=== PATIENT | male | born 1945 | race Caucasian/White ===

== ENCOUNTER 2018-02-24 08:17 | Inpatient (IN) | payer MEDICARE, OTHER ==
[~2018-02-24] VITALS: Ht 177.8 cm; Wt 99.4 kg
[2018-02-24] VITALS (8 sets, daily range): BP systolic 103–155; BP diastolic 54–91
[2018-02-24 09:04] LABS: BASOPHILS # (AUTO) 0.3 X10'3 (0-0.2); BASOPHILS % (AUTO) 1.6 % (0-1); EOSINOPHILS # (AUTO) 0.2 X10'3 (0-0.9); EOSINOPHILS % (AUTO) 0.9 % (0-6); HEMATOCRIT 40.1 % (42.0-52.0); HEMOGLOBIN 13.6 g/dl (14.0-17.9); LYMPHOCYTES # (AUTO) 1.2 X10'3 (1.1-4.8); LYMPHOCYTES % (AUTO) 5.7 % (21-51); MEAN CORPUSCULAR HEMOGLOBIN 29.1 PG (27.0-31.0); MEAN CORPUSCULAR VOLUME 85.7 FL (78-98); MEAN PLATELET VOLUME 7.8 FL (7.4-10.4); MONOCYTES # (AUTO) 1.7 X10'3 (0-0.9); MONOCYTES % (AUTO) 7.8 % (2-12); NEUTROPHILS # (AUTO) 17.8 X10'3 (1.8-7.7); PLATELET COUNT 290 X10'3 (140-440); RED BLOOD COUNT 4.68 X10'6 (4.70-6.10); RED CELL DISTRIBUTION WIDTH 12.9 % (11.5-14.5); WHITE BLOOD COUNT 21.2 X10'3 (4.5-11.0)
[2018-02-24 09:21] LABS: ALANINE AMINOTRANSFERASE 40 U/L (12-78); ALBUMIN 3.7 G/DL (3.4-5.0); ALBUMIN/GLOBULIN RATIO 1.1 (1.1-1.5); ALKALINE PHOSPHATASE 80 IU/L (46-116); ANION GAP 9 (8-16); ASPARTATE AMINO TRANSFERASE 27 U/L (10-37); BILIRUBIN,TOTAL 0.5 MG/DL (0.1-1.0); BLOOD UREA NITROGEN 18 MG/DL (7-18); BUN/CREATININE RATIO 12.9 (5.4-32.0); CALCIUM 9.2 MG/DL (8.5-10.1); CHLORIDE 100 MMOL/L (99-107); GLUCOSE 119 MG/DL (70-104); POTASSIUM 4.5 MMOL/L (3.5-5.1); SODIUM 135 MMOL/L (135-145); TOTAL CARBON DIOXIDE 26.4 MMOL/L (24-32); TOTAL PROTEIN 7.2 G/DL (6.4-8.2); eGFR 50 ML/MIN
[2018-02-24 09:42] LABS: PARTIAL THROMBOPLASTIN TIME 25 SECONDS (22-32)
[2018-02-24] MEDS ORDERED: ondansetron/PF 4mg/2ml inj IV PRN ×2 (10:10→12:45)
[2018-02-24] MEDS ORDERED: MORPHINE 2MG in 2ml NS syringe IV PRN (10:10)
[2018-02-24] MEDS ORDERED: normal saline 1000ML IV soln IVB ONE (10:10)
[2018-02-24] MEDS ORDERED: morphine 4 MG/ML inj SYRINge IV PRN ×2 (10:18→12:45)
[2018-02-24 11:54] LABS: OCCULT BLOOD STOOL POSITIVE (Neg)
[2018-02-24 11:55] LABS: CLARITY,URINE CLEAR (Clear); COLOR,URINE YELLOW (Yellow); GLUCOSE, URINE NEGATIVE (Neg); KETONES,URINE NEGATIVE (Neg); LEUKOCYTE ESTERASE ,URINE NEGATIVE (Neg); NITRITES, URINE NEGATIVE (Neg); OCCULT BLOOD,URINE NEGATIVE (Neg); PH,URINE 5.5 (4.8-8.0); PROTEIN,URINE NEGATIVE (Neg); UROBILINOGEN,URINE 0.2 E.U/dL (0.2-1.0)
[2018-02-24 11:57] LABS: UA COLLECTION TYPE CLN CATCH MIDSTREAM
[2018-02-24] MEDS ORDERED: LISI10TA4 PO (12:44)
[2018-02-24] MEDS ORDERED: SIMV20TA5 PO (12:44)
[2018-02-24] MEDS ORDERED: OMEP40CA37 PO (12:44)
[2018-02-24] MEDS ORDERED: LORA10TA7 PO (12:44)
[2018-02-24] MEDS ORDERED: AMIT50TA3 PO (12:44)
[2018-02-24] MEDS ORDERED: DICL-194 PO (12:44)
[2018-02-24] MEDS ORDERED: MULT-1085 PO (12:44)
[2018-02-24] MEDS ORDERED: MOME0.242 INH (12:44)
[2018-02-24] MEDS ORDERED: magnesium hydroxide 30ml (MOM) UD suspension PO PRN (12:45)
[2018-02-24] MEDS ORDERED: HYDROcodone/acetaminophen 10/325mg tab PO PRN (12:45)
[2018-02-24] MEDS ORDERED: HYDROcodone/acetaminophen 5mg/325mg tablet PO PRN (12:45)
[2018-02-24] MEDS ORDERED: acetaminophen 325mg tablet PO PRN ×2 (12:45)
[2018-02-24] MEDS ORDERED: mag hydrox/Alum hydrox/simeth 30ml oral suspension PO PRN (12:45)
[2018-02-24] MEDS: normal saline 1000ml 1,000 ML IV SCH ×2 (13:25→20:30)
[2018-02-24] MEDS: levoFLOXACIN-Levaquin 500mg/D5 100 ML IV SCH (13:26)
[2018-02-24] MEDS: metroNIDAZOLE-Flagyl 500mg/NS 100 ML IV SCH ×3 (14:47→23:48)
[2018-02-24] MEDS ORDERED: fentaNYL/PF 50MCG/1 ML 2ML syringe ONE (16:25)
[2018-02-24] MEDS ORDERED: MIDAZolam 5mg/5ml vial ONE (16:25)
[2018-02-24] MEDS ORDERED: normal saline 1000ml 1,000 ML IV SCH (16:59)
[2018-02-24] MEDS ORDERED: simethicone 40mg/0.6ml oral drops 30ml MC ONE (17:00)
[2018-02-24] MEDS: lisinopril 10 MG tablet PO SCH (20:26)
[2018-02-24] MEDS: amitryptiline 50mg tablet PO SCH (20:26)
[2018-02-24] MEDS: atorvastatin 10mg tablet PO SCH (20:26)
[2018-02-24] MEDS ORDERED: temazepam 15mg capsule PO PRN (21:00)
[2018-02-25 03:00] VITALS: BP 129/68
[2018-02-25 06:00] VITALS: BP 141/67
[2018-02-25 06:01] LABS: BASOPHILS % (AUTO) 0.1 % (0-1); EOSINOPHILS # (AUTO) 0.5 X10'3 (0-0.9); EOSINOPHILS % (AUTO) 3.5 % (0-6); HEMATOCRIT 34.8 % (42.0-52.0); HEMOGLOBIN 11.7 g/dl (14.0-17.9); LYMPHOCYTES # (AUTO) 1.8 X10'3 (1.1-4.8); MEAN CORPUSCULAR HEMOGLOBIN 29.6 PG (27.0-31.0); MEAN CORPUSCULAR HGB CONC 33.6 % (33.0-36.5); MEAN CORPUSCULAR VOLUME 88.1 FL (78-98); MEAN PLATELET VOLUME 7.7 FL (7.4-10.4); MONOCYTES # (AUTO) 1.1 X10'3 (0-0.9); MONOCYTES % (AUTO) 8.3 % (2-12); NEUTROPHILS # (AUTO) 10.1 X10'3 (1.8-7.7); NEUTROPHILS % (AUTO) 75.1 % (42-75); PLATELET COUNT 231 X10'3 (140-440); RED BLOOD COUNT 3.95 X10'6 (4.70-6.10); RED CELL DISTRIBUTION WIDTH 14.3 % (11.5-14.5); WHITE BLOOD COUNT 13.5 X10'3 (4.5-11.0)
[2018-02-25 06:19] LABS: ANION GAP 8 (8-16); BLOOD UREA NITROGEN 11 MG/DL (7-18); BUN/CREATININE RATIO 9.7 (5.4-32.0); CALCIUM 8.7 MG/DL (8.5-10.1); CHLORIDE 106 MMOL/L (99-107); CREATININE 1.13 MG/DL (0.60-1.10); GLUCOSE 99 MG/DL (70-104); POTASSIUM 4.6 MMOL/L (3.5-5.1); SODIUM 141 MMOL/L (135-145); TOTAL CARBON DIOXIDE 27.3 MMOL/L (24-32); eGFR 64 ML/MIN
[2018-02-25] MEDS: lisinopril 10 MG tablet PO SCH ×2 (07:41→21:24)
[2018-02-25] MEDS: multivitamins, therapeutics tablet PO SCH (07:41)
[2018-02-25] MEDS: metroNIDAZOLE-Flagyl 500mg/NS 100 ML IV SCH ×2 (07:41→16:03)
[2018-02-25] MEDS: pantoprazole 40mg Tablet.DR PO SCH (07:41)
[2018-02-25] MEDS: levoFLOXACIN-Levaquin 500mg/D5 100 ML IV SCH (07:41)
[2018-02-25] MEDS: loratadine 10mg tablet PO SCH (07:41)
[2018-02-25] MEDS ORDERED: fluticasone furoate 200 MCG/puff inhaler IH SCH (08:00)
[2018-02-25] MEDS: normal saline 1000ml 1,000 ML IV SCH (09:10)
[2018-02-25 11:00] VITALS: BP 130/62
[2018-02-25 15:00] VITALS: BP 99/53
[2018-02-25 19:00] VITALS: BP 124/61
[2018-02-25] MEDS: atorvastatin 10mg tablet PO SCH (21:24)
[2018-02-25] MEDS: amitryptiline 50mg tablet PO SCH (21:24)
[2018-02-25 23:00] VITALS: BP 130/61
[2018-02-26] MEDS: metroNIDAZOLE-Flagyl 500mg/NS 100 ML IV SCH (00:08)
[2018-02-26] MEDS: normal saline 1000ml 1,000 ML IV SCH ×2 (00:13→04:45)
[2018-02-26 03:00] VITALS: BP 125/70
[2018-02-26 06:00] VITALS: BP 137/72
[2018-02-26 06:10] LABS: BASOPHILS # (AUTO) 0.1 X10'3 (0-0.2); BASOPHILS % (AUTO) 0.8 % (0-1); EOSINOPHILS # (AUTO) 0.6 X10'3 (0-0.9); EOSINOPHILS % (AUTO) 5.4 % (0-6); HEMATOCRIT 31.8 % (42.0-52.0); LYMPHOCYTES # (AUTO) 2.4 X10'3 (1.1-4.8); LYMPHOCYTES % (AUTO) 23.4 % (21-51); MEAN CORPUSCULAR HEMOGLOBIN 30.3 PG (27.0-31.0); MEAN CORPUSCULAR HGB CONC 34.7 % (33.0-36.5); MEAN CORPUSCULAR VOLUME 87.5 FL (78-98); MONOCYTES # (AUTO) 0.9 X10'3 (0-0.9); MONOCYTES % (AUTO) 8.7 % (2-12); NEUTROPHILS # (AUTO) 6.3 X10'3 (1.8-7.7); NEUTROPHILS % (AUTO) 61.7 % (42-75); PLATELET COUNT 197 X10'3 (140-440); RED BLOOD COUNT 3.64 X10'6 (4.70-6.10); RED CELL DISTRIBUTION WIDTH 13.1 % (11.5-14.5); WHITE BLOOD COUNT 10.3 X10'3 (4.5-11.0)
[2018-02-26 06:17] LABS: ANION GAP 10 (8-16); BLOOD UREA NITROGEN 13 MG/DL (7-18); CALCIUM 8.6 MG/DL (8.5-10.1); CHLORIDE 107 MMOL/L (99-107); CREATININE 1.08 MG/DL (0.60-1.10); GLUCOSE 98 MG/DL (70-104); POTASSIUM 4.2 MMOL/L (3.5-5.1); SODIUM 140 MMOL/L (135-145); TOTAL CARBON DIOXIDE 23.2 MMOL/L (24-32); eGFR 67 ML/MIN
[2018-02-26 06:18] LABS: ALBUMIN 2.8 G/DL (3.4-5.0)
[2018-02-26] MEDS: loratadine 10mg tablet PO SCH (08:05)
[2018-02-26] MEDS: lisinopril 10 MG tablet PO SCH (08:05)
[2018-02-26] MEDS: pantoprazole 40mg Tablet.DR PO SCH (08:05)
[2018-02-26] MEDS: levoFLOXACIN-Levaquin 500mg/D5 100 ML IV SCH (08:06)
[2018-02-26] MEDS: multivitamins, therapeutics tablet PO SCH (08:06)
[2018-02-26] MEDS ORDERED: METR500T PO (10:06)
[2018-02-26] MEDS ORDERED: LEVO500T89 PO (10:06)
[2018-02-26 11:00] VITALS: BP 139/75
== END 2018-02-26 12:20 | disposition home or self-care (01) | DRG 377 ==
LOC: ER 08:18 → ED HOLD 12:45 → PCU 3S 15:44 → CMPBEDREQ 19:26
PROVIDERS: ADMIT Hospitalist; ATTEND Family Medicine
PROC: 0DBL8ZX Excision of Transverse Colon, Via Natural or Artificial Opening Endoscopic, Diagnostic (ICD-10-PCS; principal; 2018-02-24)
DX: K92.2 Gastrointestinal hemorrhage, unspecified (principal); K55.031 Focal (segmental) acute (reversible) ischemia of large intestine; K63.3 Ulcer of intestine; D62 Acute posthemorrhagic anemia; E86.0 Dehydration; M19.90 Unspecified osteoarthritis, unspecified site; Z79.899 Other long term (current) drug therapy
CPT/HCPCS: 36415; 45380; 71045; 74176; 80048; 80053; 81003; 82272; 83605; 84145; 84484; 85025; 85610; 85730; 86885; 86900; 86901; 87040; 99285; A4620; J1956; J2250; J3010; J3490; J7030

== ENCOUNTER 2022-01-01 14:48 | Emergency (ER) | payer MEDICARE, OTHER ==
[~2022-01-01] VITALS: Ht 177.8 cm; Wt 98.6 kg
[~2022-01-01 14:48] MED LIST: AMIT50TA3 PO; LISI10TA27 PO; LORA10TA7 PO; MOME0.242 INH; MULT-1085 PO; OMEP40CA21 PO; SIMV-42 PO
[2022-01-01] MEDS ORDERED: lactulose 20gm/30ml cup PO ONE (15:20)
[2022-01-01] MEDS ORDERED: magnesium citrate 296ml oral solution PO ONE (15:20)
[2022-01-01 15:51] LABS: BASOPHILS # (AUTO) 0.1 X10'3 (0-0.2); BASOPHILS % (AUTO) 0.3 % (0-1); EOSINOPHILS # (AUTO) 0.1 X10'3 (0-0.9); EOSINOPHILS % (AUTO) 0.7 % (0-6); HEMATOCRIT 36.5 % (42.0-52.0); HEMOGLOBIN 12.2 g/dl (14.0-17.9); LYMPHOCYTES # (AUTO) 1.1 X10'3 (1.1-4.8); MEAN CORPUSCULAR HEMOGLOBIN 29.1 PG (27.0-31.0); MEAN CORPUSCULAR HGB CONC 33.4 g/dL (33.0-36.5); MEAN CORPUSCULAR VOLUME 87.2 FL (78-98); MEAN PLATELET VOLUME 7.5 FL (7.4-10.4); MONOCYTES # (AUTO) 0.9 X10'3 (0-0.9); MONOCYTES % (AUTO) 5.9 % (2-12); NEUTROPHILS # (AUTO) 13.6 X10'3 (1.8-7.7); NEUTROPHILS % (AUTO) 86.1 % (42-75); PLATELET COUNT 256 X10'3 (140-440); RED BLOOD COUNT 4.18 X10'6 (4.70-6.10); RED CELL DISTRIBUTION WIDTH 13.8 % (11.5-14.5); WHITE BLOOD COUNT 15.8 X10'3 (4.5-11.0)
[2022-01-01 16:05] LABS: ALANINE AMINOTRANSFERASE 24 U/L (12-78); ALBUMIN 3.6 G/DL (3.4-5.0); ALBUMIN/GLOBULIN RATIO 1.1 (1.1-1.5); ANION GAP 4 (8-16); ASPARTATE AMINO TRANSFERASE 16 U/L (10-37); BILIRUBIN,TOTAL 0.3 MG/DL (0.1-1.0); BLOOD UREA NITROGEN 16 MG/DL (7-18); BUN/CREATININE RATIO 12.4 (5.4-32.0); CALCIUM 8.8 MG/DL (8.5-10.1); CHLORIDE 100 MMOL/L (99-107); CREATININE 1.29 MG/DL (0.60-1.10); GLUCOSE 122 MG/DL (70-104); POTASSIUM 4.9 MMOL/L (3.5-5.1); SODIUM 132 MMOL/L (135-145); TOTAL CARBON DIOXIDE 28.4 MMOL/L (24-32); TOTAL PROTEIN 6.8 G/DL (6.4-8.2); eGFR 54 ML/MIN
[2022-01-01 16:34] LABS: CLARITY,URINE CLOUDY (Clear); COLOR,URINE YELLOW (Yellow); GLUCOSE, URINE NEGATIVE (Neg); KETONES,URINE 15 mg/dl (Neg); LEUKOCYTE ESTERASE ,URINE MODERATE (Neg); NITRITES, URINE NEGATIVE (Neg); OCCULT BLOOD,URINE LARGE (Neg); PROTEIN,URINE 100 mg/dl (Neg); UROBILINOGEN,URINE 0.2 E.U/dL (0.2-1.0)
[2022-01-01 16:48] LABS: UA COLLECTION TYPE FOLEY CATH
[2022-01-01] MEDS ORDERED: iohexol 300mg/ml 100ml inj. ONE (16:55)
[2022-01-01 17:24] LABS: BACTERIA,URINE 1+ /HPF (Neg); MUCUS STRANDS FEW /LPF (Neg); RBC,URINE TNTC /HPF (0-2); SQUAMOUS EPITHELIAL CELL,UR FEW /LPF (FEW); TRANSITIONAL EPI CELLS,URINE FEW /HPF; WBC,URINE 30-50 /HPF (0-4)
[2022-01-01 17:25] LABS: HYALINE CASTS 0-3 /LPF (NEGATIVE)
[2022-01-01] MEDS ORDERED: sulfamethoxazole/trimethoprim DS (800/160mg) tablet PO ONE (18:15)
[2022-01-01] MEDS ORDERED: SENN1TAB33 PO ×2 (18:57)
[2022-01-01] MEDS ORDERED: SULF1TAB45 PO ×2 (18:57)
[2022-01-01 19:36] VITALS: BP 92/60
== END 2022-01-01 19:40 | disposition home or self-care (01) ==
LOC: ER 14:53
DX: K59.00 Constipation, unspecified (principal); N39.0 Urinary tract infection, site not specified; E78.00 Pure hypercholesterolemia, unspecified; J45.909 Unspecified asthma, uncomplicated; K21.9 Gastro-esophageal reflux disease without esophagitis; G89.29 Other chronic pain; M19.90 Unspecified osteoarthritis, unspecified site; Z79.899 Other long term (current) drug therapy; Z96.0 Presence of urogenital implants
CPT/HCPCS: 36415; 74177; 80053; 81001; 85025; 87088; 99285; Q9967

== ENCOUNTER 2022-01-01 19:50 | Inpatient (IN) | payer MEDICARE, OTHER ==
[~2022-01-01] VITALS: Ht 177.8 cm; Wt 97.7 kg
[~2022-01-01 19:50] MED LIST changes: +SENN1TAB33 PO; +SULF1TAB45 PO
[2022-01-01] MEDS ORDERED: normal saline 1000ml 1,000 ML IV ONE (20:25)
[2022-01-01 21:59] LABS: MAGNESIUM 2.3 MG/DL (1.5-2.4)
[2022-01-02] VITALS (9 sets, daily range): BP systolic 76–141; BP diastolic 32–76
--- NOTE | 2022-01-02 06:32 | NUR ---
Patient in room PCU 3010. I have received report from Meena SAMPSON and had the opportunity to ask questions and assume patient care.
[2022-01-02] MEDS ORDERED: normal saline 1000ml 1,000 ML IV SCH (07:10)
[2022-01-02] MEDS ORDERED: ondansetron/PF 4mg/2ml inj IV PRN (07:10)
[2022-01-02] MEDS ORDERED: magnesium Cl slow-release 64mg tablet PO PRN (07:10)
[2022-01-02] MEDS ORDERED: potassium Cl 20 mEq SR tablet PO PRN ×2 (07:10)
[2022-01-02] MEDS ORDERED: magnesium 2GM in 50ml NS 50 ML IV PRN (07:10)
[2022-01-02] MEDS ORDERED: PERFLUTREN PROTEIN-A MICROSPHR (Optison) 0.22 MG/ML 3ML VIAL IV PRN (07:10)
[2022-01-02] MEDS ORDERED: potassium CL 10mEq/100ml bag 100 ML IV PRN (07:10)
[2022-01-02] MEDS ORDERED: magnesium 4gm in 100ml NS 100 ML IV PRN (07:10)
[2022-01-02] MEDS: K and/or MAG REPLACEMENT MC SCH ×2 (08:00→20:00)
[2022-01-02] MEDS: normal saline 1000ml 1,000 ML IV SCH ×2 (09:09→17:10)
[2022-01-02 10:20] LABS: MAGNESIUM 2.5 MG/DL (1.5-2.4)
[2022-01-02 10:24] LABS: POTASSIUM 4.5 MMOL/L (3.5-5.1)
[2022-01-02] MEDS: CefTRIAXone/D5W-Rocephin 1gm 50 ML IV SCH (11:49)
[2022-01-02] MEDS ORDERED: magnesium hydroxide 30ml (MOM) UD suspension PO ONE (14:40)
--- NOTE | 2022-01-02 16:23 | NUR ---
PAGER ID: [phone] MESSAGE: [id number]. Orthostatics positive lay 108/63, sit 85/42, stand 76/32. Raysa/Lanette Ext [phone]
[2022-01-02] MEDS: acetaminophen 325mg tablet PO PRN (17:59)
--- NOTE | 2022-01-02 18:12 | NUR ---
Problems reprioritized. Patient report given, questions answered & plan of care reviewed with Meena SAMPSON. Patient resting in bed in no acute distress
[2022-01-02] MEDS: lisinopril 10 MG tablet PO SCH (20:00)
[2022-01-02] MEDS: amitriptyline 50mg tablet PO SCH (20:01)
[2022-01-02] MEDS: atorvastatin 10mg tablet PO SCH (20:01)
--- NOTE | 2022-01-02 20:07 | NUR ---
Lisinopril was not administered. Pt diastolic pressure is 52.
[2022-01-03] VITALS (8 sets, daily range): BP systolic 99–143; BP diastolic 47–76
[2022-01-03] MEDS: normal saline 1000ml 1,000 ML IV SCH ×3 (03:37→19:25)
[2022-01-03 07:32] LABS: BASOPHILS % (AUTO) 0.2 % (0-1); EOSINOPHILS # (AUTO) 0.1 X10'3 (0-0.9); EOSINOPHILS % (AUTO) 0.4 % (0-6); HEMATOCRIT 35.4 % (42.0-52.0); HEMOGLOBIN 11.7 g/dl (14.0-17.9); LYMPHOCYTES # (AUTO) 1.2 X10'3 (1.1-4.8); LYMPHOCYTES % (AUTO) 6.2 % (21-51); MEAN CORPUSCULAR HEMOGLOBIN 29.2 PG (27.0-31.0); MEAN CORPUSCULAR HGB CONC 33.2 g/dL (33.0-36.5); MEAN CORPUSCULAR VOLUME 87.8 FL (78-98); MEAN PLATELET VOLUME 7.6 FL (7.4-10.4); MONOCYTES # (AUTO) 1.9 X10'3 (0-0.9); NEUTROPHILS # (AUTO) 15.8 X10'3 (1.8-7.7); NEUTROPHILS % (AUTO) 83.2 % (42-75); PLATELET COUNT 217 X10'3 (140-440); RED BLOOD COUNT 4.03 X10'6 (4.70-6.10); RED CELL DISTRIBUTION WIDTH 14.2 % (11.5-14.5)
[2022-01-03] MEDS: budesonide 0.5mg/2ml UD nebule IH SCH ×2 (07:36→20:59)
[2022-01-03] MEDS: K and/or MAG REPLACEMENT MC SCH ×2 (08:00→19:12)
[2022-01-03] MEDS: lisinopril 10 MG tablet PO SCH ×2 (08:00→19:32)
[2022-01-03 08:04] LABS: ANION GAP 7 (8-16); BLOOD UREA NITROGEN 18 MG/DL (7-18); BUN/CREATININE RATIO 14.2 (5.4-32.0); CALCIUM 8.1 MG/DL (8.5-10.1); CHLORIDE 104 MMOL/L (99-107); CREATININE 1.27 MG/DL (0.60-1.10); GLUCOSE 110 MG/DL (70-104); MAGNESIUM 2.8 MG/DL (1.5-2.4); SODIUM 136 MMOL/L (135-145); TOTAL CARBON DIOXIDE 25.3 MMOL/L (24-32); eGFR 55 ML/MIN
[2022-01-03] MEDS: multivitamins, therapeutics tablet PO SCH (08:41)
[2022-01-03] MEDS: pantoprazole 40mg Tablet.DR PO SCH (08:41)
[2022-01-03] MEDS: CefTRIAXone/D5W-Rocephin 1gm 50 ML IV SCH (08:42)
[2022-01-03] MEDS: loratadine 10mg tablet PO SCH (08:42)
--- NOTE | 2022-01-03 18:25 | NUR ---
Patient in room PCU 3010. I have received report from CAMILLA Rodgers, and had the opportunity to ask questions and assume patient care.
--- NOTE | 2022-01-03 18:42 | NUR ---
Problems reprioritized. Patient report given, questions answered & plan of care reviewed with Sana SAMPSON.
[2022-01-03] MEDS: atorvastatin 10mg tablet PO SCH (20:22)
[2022-01-03] MEDS: acetaminophen 325mg tablet PO PRN (20:22)
[2022-01-03] MEDS: amitriptyline 50mg tablet PO SCH (20:22)
[2022-01-04 02:00] VITALS: BP 122/62
[2022-01-04 06:00] VITALS: BP 121/55
--- NOTE | 2022-01-04 06:13 | NUR ---
Problems reprioritized. Patient report given, questions answered & plan of care reviewed with CAMILLA Barclay.
[2022-01-04] MEDS: CefTRIAXone/D5W-Rocephin 1gm 50 ML IV SCH (07:27)
[2022-01-04] MEDS: loratadine 10mg tablet PO SCH (07:30)
[2022-01-04] MEDS: pantoprazole 40mg Tablet.DR PO SCH (07:30)
[2022-01-04] MEDS: multivitamins, therapeutics tablet PO SCH (07:30)
[2022-01-04] MEDS: lisinopril 10 MG tablet PO SCH (07:30)
[2022-01-04 08:00] VITALS: BP_SYST 119; BP_SYST 133; BP_SYST 149; BP_DIAS 58; BP_DIAS 66; BP_DIAS 67
[2022-01-04] MEDS: budesonide 0.5mg/2ml UD nebule IH SCH (08:25)
[2022-01-04 08:31] LABS: BASOPHILS # (AUTO) 0.1 X10'3 (0-0.2); BASOPHILS % (AUTO) 0.6 % (0-1); EOSINOPHILS # (AUTO) 0.4 X10'3 (0-0.9); EOSINOPHILS % (AUTO) 2.5 % (0-6); HEMATOCRIT 33.4 % (42.0-52.0); HEMOGLOBIN 11.1 g/dl (14.0-17.9); LYMPHOCYTES # (AUTO) 1.3 X10'3 (1.1-4.8); LYMPHOCYTES % (AUTO) 9.2 % (21-51); MEAN CORPUSCULAR HEMOGLOBIN 29.2 PG (27.0-31.0); MEAN CORPUSCULAR HGB CONC 33.2 g/dL (33.0-36.5); MEAN PLATELET VOLUME 7.8 FL (7.4-10.4); MONOCYTES # (AUTO) 1.4 X10'3 (0-0.9); MONOCYTES % (AUTO) 9.9 % (2-12); NEUTROPHILS # (AUTO) 11.3 X10'3 (1.8-7.7); NEUTROPHILS % (AUTO) 77.8 % (42-75); PLATELET COUNT 206 X10'3 (140-440); RED CELL DISTRIBUTION WIDTH 14.5 % (11.5-14.5); WHITE BLOOD COUNT 14.5 X10'3 (4.5-11.0)
[2022-01-04 09:20] LABS: ALBUMIN 2.8 G/DL (3.4-5.0); ANION GAP 7 (8-16); BLOOD UREA NITROGEN 19 MG/DL (7-18); BUN/CREATININE RATIO 16.8 (5.4-32.0); CHLORIDE 107 MMOL/L (99-107); CREATININE 1.13 MG/DL (0.60-1.10); GLUCOSE 100 MG/DL (70-104); MAGNESIUM 2.4 MG/DL (1.5-2.4); POTASSIUM 4.7 MMOL/L (3.5-5.1); SODIUM 138 MMOL/L (135-145); TOTAL CARBON DIOXIDE 23.8 MMOL/L (24-32); eGFR 63 ML/MIN
[2022-01-04] MEDS ORDERED: AMIT50TA3 PO (11:40)
[2022-01-04] MEDS ORDERED: CIPR-202 PO (11:40)
--- NOTE | 2022-01-04 12:58 | NUR ---
Ambulation done. 300 feet with walker. Patient tolerated the walk well. Stood up too fast and felt dizzy.
== END 2022-01-04 16:20 | disposition home health service (06) | DRG 312 ==
LOC: ER 19:50 → ED HOLD 23:52 → PCU 3S 01-02 03:02
PROVIDERS: ADMIT Internal Medicine; ATTEND Family Medicine
DX: I95.1 Orthostatic hypotension (principal); N39.0 Urinary tract infection, site not specified; E86.0 Dehydration; I10 Essential (primary) hypertension; J44.9 Chronic obstructive pulmonary disease, unspecified; K21.9 Gastro-esophageal reflux disease without esophagitis; F41.9 Anxiety disorder, unspecified; E78.5 Hyperlipidemia, unspecified; E03.9 Hypothyroidism, unspecified; K59.00 Constipation, unspecified; E78.00 Pure hypercholesterolemia, unspecified; M19.90 Unspecified osteoarthritis, unspecified site; G89.29 Other chronic pain; Z79.899 Other long term (current) drug therapy
CPT/HCPCS: 36415; 70450; 70486; 71045; 72125; 74177; 80048; 80053; 81001; 82948; 83735; 83880; 84132; 84145; 84484; 85025; 87081; 87088; 93005; 93306; 93880; 94640; 94760; 96360; 96361; 97116; 97161; 97530; 99285; G0378; J0696; J7030; Q9967

== ENCOUNTER 2023-05-21 23:06 | Emergency (ER) | payer MEDICARE, OTHER, MEDICAID ==
[~2023-05-21] VITALS: Ht 182.9 cm; Wt 113.6 kg
[~2023-05-21 23:06] MED LIST changes: +ALBU8HFA PO; -AMIT50TA3 PO; +AMIT75TA7 PO; +CHOL100025 PO; +FLO0.4C PO; +LACT1CAP65 PO; +LEVO25TA7 PO; -LISI10TA27 PO; +LISI5TAB22 PO; -LORA10TA7 PO; -MOME0.242 INH; +MOME13HF8 PO; +MULT-1074 PO; -MULT-1085 PO; +OMEP20CA15 PO; -OMEP40CA21 PO; -SENN1TAB33 PO; +SIMV-342 PO; -SIMV-42 PO; -SULF1TAB45 PO
[2023-05-21 23:44] LABS: BASOPHILS # (AUTO) 0.1 X10'3 (0-0.2); BASOPHILS % (AUTO) 0.5 % (0-1); EOSINOPHILS # (AUTO) 0.7 X10'3 (0-0.9); EOSINOPHILS % (AUTO) 4.4 % (0-6); HEMATOCRIT 35.1 % (42.0-52.0); HEMOGLOBIN 11.6 g/dl (14.0-17.9); LYMPHOCYTES # (AUTO) 1.4 X10'3 (1.1-4.8); LYMPHOCYTES % (AUTO) 8.8 % (21-51); MEAN CORPUSCULAR HEMOGLOBIN 28.5 PG (27.0-31.0); MEAN CORPUSCULAR HGB CONC 33.1 g/dL (33.0-36.5); MEAN CORPUSCULAR VOLUME 86.1 FL (78-98); MEAN PLATELET VOLUME 6.7 FL (7.4-10.4); MONOCYTES # (AUTO) 1.7 X10'3 (0-0.9); MONOCYTES % (AUTO) 10.6 % (2-12); NEUTROPHILS # (AUTO) 12.2 X10'3 (1.8-7.7); NEUTROPHILS % (AUTO) 75.7 % (42-75); PLATELET COUNT 461 X10'3 (140-440); RED BLOOD COUNT 4.07 X10'6 (4.70-6.10); RED CELL DISTRIBUTION WIDTH 14.5 % (11.5-14.5); WHITE BLOOD COUNT 16.1 X10'3 (4.5-11.0)
[2023-05-21 23:56] LABS: ALANINE AMINOTRANSFERASE 39 U/L (12-78); ALBUMIN 3.2 G/DL (3.4-5.0); ALKALINE PHOSPHATASE 91 IU/L (46-116); ANION GAP 10 (8-16); ASPARTATE AMINO TRANSFERASE 14 U/L (10-37); BILIRUBIN,TOTAL 0.4 MG/DL (0.1-1.0); BLOOD UREA NITROGEN 25 MG/DL (7-18); CALCIUM 8.9 MG/DL (8.5-10.1); CHLORIDE 94 MMOL/L (99-107); CREATININE 1.25 MG/DL (0.60-1.10); GLUCOSE 106 MG/DL (70-104); SODIUM 129 MMOL/L (135-145); TOTAL CARBON DIOXIDE 24.7 MMOL/L (24-32); TOTAL PROTEIN 6.4 G/DL (6.4-8.2); eGFR 56 ML/MIN
[2023-05-21 23:59] LABS: CLARITY,URINE SLIGHTLY CLOUDY (Clear); COLOR,URINE YELLOW (Yellow); GLUCOSE, URINE NEGATIVE (Neg); KETONES,URINE NEGATIVE (Neg); LEUKOCYTE ESTERASE ,URINE NEGATIVE (Neg); NITRITES, URINE NEGATIVE (Neg); OCCULT BLOOD,URINE TRACE-INTACT (Neg); PROTEIN,URINE NEGATIVE (Neg); UROBILINOGEN,URINE 0.2 E.U/dL (0.2-1.0)
[2023-05-22 00:04] LABS: UA COLLECTION TYPE NON-SPECIFIED
[2023-05-22 00:07] LABS: BACTERIA,URINE FEW /HPF (Neg); SQUAMOUS EPITHELIAL CELL,UR FEW /LPF (FEW); TRANSITIONAL EPI CELLS,URINE FEW /HPF; WBC CLUMPS,URINE FEW /HPF (NEGATIVE)
[2023-05-22] MEDS ORDERED: CefTRIAXone 2gm/D5W 50ml BAG 50 ML IV ONE (00:10)
[2023-05-22] MEDS ORDERED: normal saline 1000ML IV soln IVB ONE (00:10)
[2023-05-22 00:18] LABS: URINE AMPHETAMINE SCREEN NEGATIVE (Neg); URINE BARBITUATE SCREEN NEGATIVE (Neg); URINE BENZODIAZEPINES SCREEN NEGATIVE (Neg); URINE CANNABINOID SCREEN NEGATIVE (Neg); URINE COCAINE SCREEN NEGATIVE (Neg); URINE METHADONE SCREEN NEGATIVE (Neg); URINE OPIATE SCREEN NEGATIVE (Neg); URINE PHENCYCLIDINE SCREEN NEGATIVE (Neg)
[2023-05-22] MEDS ORDERED: AMOX-117 PO (00:30)
--- NOTE | 2023-05-22 01:10 | NUR ---
report given to noc nurse at [facility], awaiting to hear back from [facility] with regards to transportation.
[2023-05-22 01:42] VITALS: BP 157/65
== END 2023-05-22 01:43 ==
LOC: ER 23:07
DX: N39.0 Urinary tract infection, site not specified (principal); E86.0 Dehydration; E78.00 Pure hypercholesterolemia, unspecified; K21.9 Gastro-esophageal reflux disease without esophagitis; G89.29 Other chronic pain; M54.9 Dorsalgia, unspecified; F41.9 Anxiety disorder, unspecified; Z79.899 Other long term (current) drug therapy
CPT/HCPCS: 36415; 71045; 80053; 80305; 81001; 82140; 83605; 83880; 84145; 84484; 85025; 87040; 93005; 96365; 99285; J0696; J7030; 81003; C1758

== ENCOUNTER 2023-06-18 07:01 | Emergency (ER) | payer MEDICARE, OTHER, MEDICAID ==
[~2023-06-18] VITALS: Ht 182.9 cm; Wt 81.8 kg
[2023-06-18] MEDS ORDERED: normal saline 1000ML IV soln IV ONE (07:20)
[2023-06-18 07:38] LABS: BASOPHILS % (AUTO) 0.3 % (0-1); EOSINOPHILS # (AUTO) 0.3 X10'3 (0-0.9); EOSINOPHILS % (AUTO) 1.8 % (0-6); HEMATOCRIT 36.6 % (42.0-52.0); HEMOGLOBIN 12.1 g/dl (14.0-17.9); LYMPHOCYTES % (AUTO) 14.4 % (21-51); MEAN CORPUSCULAR HEMOGLOBIN 28.5 PG (27.0-31.0); MEAN CORPUSCULAR HGB CONC 33.2 g/dL (33.0-36.5); MEAN CORPUSCULAR VOLUME 85.9 FL (78-98); MEAN PLATELET VOLUME 6.8 FL (7.4-10.4); MONOCYTES # (AUTO) 1.5 X10'3 (0-0.9); MONOCYTES % (AUTO) 10.4 % (2-12); NEUTROPHILS # (AUTO) 10.3 X10'3 (1.8-7.7); NEUTROPHILS % (AUTO) 73.1 % (42-75); PLATELET COUNT 358 X10'3 (140-440); RED BLOOD COUNT 4.26 X10'6 (4.70-6.10); RED CELL DISTRIBUTION WIDTH 15.3 % (11.5-14.5); WHITE BLOOD COUNT 14.1 X10'3 (4.5-11.0)
[2023-06-18 07:48] LABS: ALANINE AMINOTRANSFERASE 32 U/L (12-78); ALBUMIN 3.6 G/DL (3.4-5.0); ALBUMIN/GLOBULIN RATIO 0.9 (1.1-1.5); ALKALINE PHOSPHATASE 142 IU/L (46-116); ANION GAP 8 (8-16); ASPARTATE AMINO TRANSFERASE 23 U/L (10-37); BILIRUBIN,TOTAL 0.3 MG/DL (0.1-1.0); BLOOD UREA NITROGEN 24 MG/DL (7-18); BUN/CREATININE RATIO 19.2 (10.0-20.0); CALCIUM 9.3 MG/DL (8.5-10.1); CHLORIDE 90 MMOL/L (99-107); CREATININE 1.25 MG/DL (0.60-1.10); GLUCOSE 118 MG/DL (70-104); POTASSIUM 4.2 MMOL/L (3.5-5.1); SODIUM 124 MMOL/L (135-145); TOTAL CARBON DIOXIDE 26.4 MMOL/L (24-32); TOTAL PROTEIN 7.4 G/DL (6.4-8.2); eGFR 56 ML/MIN
[2023-06-18 08:47] LABS: CLARITY,URINE CLEAR (Clear); COLOR,URINE YELLOW (Yellow); GLUCOSE, URINE NEGATIVE (Neg); KETONES,URINE NEGATIVE (Neg); LEUKOCYTE ESTERASE ,URINE NEGATIVE (Neg); NITRITES, URINE NEGATIVE (Neg); OCCULT BLOOD,URINE NEGATIVE (Neg); PROTEIN,URINE NEGATIVE (Neg); UROBILINOGEN,URINE 0.2 E.U/dL (0.2-1.0)
[2023-06-18 08:50] LABS: UA COLLECTION TYPE STRAIGHT CATH
--- NOTE | 2023-06-18 10:11 | NUR ---
n[facility] nurse [facility] [place] 11:15-12
[2023-06-18 11:04] VITALS: BP 118/74; PULSE 72; RESP 18; TEMP 98.1; O2SAT 95
== END 2023-06-18 11:05 | disposition home or self-care (01) ==
LOC: ER 07:02
DX: I95.9 Hypotension, unspecified (principal); R55 Syncope and collapse; E86.0 Dehydration; E87.1 Hypo-osmolality and hyponatremia; E78.00 Pure hypercholesterolemia, unspecified; J45.909 Unspecified asthma, uncomplicated; K21.9 Gastro-esophageal reflux disease without esophagitis; Z79.899 Other long term (current) drug therapy
CPT/HCPCS: 36415; 71045; 80053; 81003; 83880; 84145; 84484; 85025; 93005; 96360; 99285; J7030

== ENCOUNTER 2023-09-30 15:07 | Inpatient (IN) | payer MEDICARE, OTHER, MEDICAID ==
[~2023-09-30] VITALS: Ht 177.8 cm; Wt 83.9 kg
[2023-09-30] MEDS ORDERED: morphine 2 MG/ML inj. syringe IV PRN ×3 (19:45→23:45)
[2023-09-30] MEDS ORDERED: morphine 4 MG/ML inj SYRINge IV ONE (19:45)
[2023-09-30 20:08] LABS: BASOPHILS # (AUTO) 0.1 X10'3 (0-0.2); BASOPHILS % (AUTO) 0.3 % (0-1); EOSINOPHILS # (AUTO) 0.4 X10'3 (0-0.9); EOSINOPHILS % (AUTO) 2.4 % (0-6); HEMATOCRIT 40.5 % (42.0-52.0); HEMOGLOBIN 13.4 g/dl (14.0-17.9); LYMPHOCYTES # (AUTO) 1.5 X10'3 (1.1-4.8); LYMPHOCYTES % (AUTO) 8.4 % (21-51); MEAN CORPUSCULAR HEMOGLOBIN 28.1 PG (27.0-31.0); MEAN CORPUSCULAR VOLUME 84.9 FL (78-98); MEAN PLATELET VOLUME 6.8 FL (7.4-10.4); MONOCYTES # (AUTO) 2.1 X10'3 (0-0.9); MONOCYTES % (AUTO) 11.5 % (2-12); NEUTROPHILS # (AUTO) 14.1 X10'3 (1.8-7.7); NEUTROPHILS % (AUTO) 77.4 % (42-75); PLATELET COUNT 301 X10'3 (140-440); RED BLOOD COUNT 4.76 X10'6 (4.70-6.10); RED CELL DISTRIBUTION WIDTH 14.8 % (11.5-14.5); WHITE BLOOD COUNT 18.3 X10'3 (4.5-11.0)
[2023-09-30 20:08] LABS: BILIRUBIN,URINE NEGATIVE (Neg); CLARITY,URINE CLEAR (Clear); COLOR,URINE YELLOW (Yellow); GLUCOSE, URINE NEGATIVE (Neg); KETONES,URINE NEGATIVE (Neg); LEUKOCYTE ESTERASE ,URINE NEGATIVE (Neg); NITRITES, URINE NEGATIVE (Neg); OCCULT BLOOD,URINE NEGATIVE (Neg); PH,URINE 6.5 (4.8-8.0); PROTEIN,URINE NEGATIVE (Neg); UROBILINOGEN,URINE 0.2 E.U/dL (0.2-1.0)
[2023-09-30 20:17] LABS: UA COLLECTION TYPE URINAL
[2023-09-30 20:20] LABS: ALANINE AMINOTRANSFERASE 44 U/L (12-78); ALBUMIN 3.8 G/DL (3.4-5.0); ALBUMIN/GLOBULIN RATIO 1.1 (1.1-1.5); ALKALINE PHOSPHATASE 123 IU/L (46-116); ANION GAP 8 (8-16); ASPARTATE AMINO TRANSFERASE 25 U/L (10-37); BILIRUBIN,TOTAL 0.4 MG/DL (0.1-1.0); BLOOD UREA NITROGEN 20 MG/DL (7-18); BUN/CREATININE RATIO 15.4 (10.0-20.0); CALCIUM 9.3 MG/DL (8.5-10.1); CHLORIDE 89 MMOL/L (99-107); GLUCOSE 98 MG/DL (70-104); POTASSIUM 4.3 MMOL/L (3.5-5.1); SODIUM 123 MMOL/L (135-145); TOTAL CARBON DIOXIDE 26.1 MMOL/L (24-32); TOTAL PROTEIN 7.3 G/DL (6.4-8.2); eCRCL 49 ML/MIN; eGFR 54 ML/MIN
[2023-09-30] MEDS ORDERED: temazepam 15mg capsule PO PRN (21:00)
[2023-09-30 21:22] LABS: TOTAL CELLS COUNTED 100
[2023-09-30 21:23] LABS: PLATELET ESTIMATE NORMAL
[2023-09-30] MEDS ORDERED: mag hydrox/Alum hydrox/simeth 30ml oral suspension PO PRN (23:45)
[2023-09-30] MEDS ORDERED: diphenhydrAMINE 25mg capsule PO PRN (23:45)
[2023-09-30] MEDS ORDERED: ondansetron/PF 4mg/2ml inj IV PRN (23:45)
[2023-09-30] MEDS ORDERED: acetaminophen 650mg rectal suppository RC PRN (23:45)
[2023-09-30] MEDS: normal saline 1000ml 1,000 ML IV SCH (23:45)
[2023-09-30] MEDS ORDERED: ondansetron 4mg rapidly disintigrating tab PO PRN (23:45)
[2023-09-30] MEDS ORDERED: acetaminophen 325mg tablet PO PRN ×2 (23:45)
[2023-09-30] MEDS ORDERED: bisacodyl 10mg suppository rectal RC PRN (23:45)
[2023-09-30] MEDS ORDERED: magnesium hydroxide 30ml (MOM) UD suspension PO PRN (23:45)
[2023-09-30] MEDS ORDERED: diphenhydrAMINE 50 mg/ml inj IV PRN (23:45)
[2023-09-30] MEDS ORDERED: HYDROcodone/acetaminophen 5mg/325mg tablet PO PRN (23:45)
[2023-10-01] VITALS (7 sets, daily range): BP systolic 128–176; BP diastolic 66–74; PULSE 71–97; RESP 15–16; TEMP 97.6–98.7; O2SAT 92–96
[2023-10-01 00:31] LABS: HEMOGLOBIN A1C 5.7 % (4.5-6.2)
[2023-10-01 00:43] LABS: MAGNESIUM 2.2 MG/DL (1.5-2.4); PHOSPHORUS 4.1 MG/DL (2.3-4.5)
[2023-10-01 00:57] LABS: APTT 27 SECONDS (22-32); D-DIMER 22.99 MG/L FEU (0-0.50); PROTHROMBIN TIME 10.4 SECONDS (9.0-12.0)
[2023-10-01] MEDS ORDERED: LEVO25TA7 PO (01:22)
[2023-10-01] MEDS ORDERED: FLO0.4C PO (01:22)
[2023-10-01] MEDS ORDERED: AMIT100T61 PO (01:22)
[2023-10-01] MEDS ORDERED: POTA8TAB69 PO (01:22)
[2023-10-01] MEDS ORDERED: SIMV-42 PO (01:22)
[2023-10-01] MEDS ORDERED: LISI10TA27 PO (01:22)
[2023-10-01] MEDS ORDERED: AMLO5TAB16 PO (01:22)
[2023-10-01] MEDS ORDERED: FURO40TA4 PO (01:22)
[2023-10-01] MEDS: HYDROcodone/acetaminophen 10/325mg tab PO PRN ×3 (03:19→14:07)
--- NOTE | 2023-10-01 06:58 | NUR ---
REPORT GIVEN TO CAMILLA ALAS, PT TO GO TO ROOM 4025C
[2023-10-01 07:41] LABS: BASOPHILS # (AUTO) 0.1 X10'3 (0-0.2); BASOPHILS % (AUTO) 0.9 % (0-1); EOSINOPHILS # (AUTO) 0.9 X10'3 (0-0.9); EOSINOPHILS % (AUTO) 6.8 % (0-6); HEMATOCRIT 37.7 % (42.0-52.0); HEMOGLOBIN 12.3 g/dl (14.0-17.9); LYMPHOCYTES # (AUTO) 1.8 X10'3 (1.1-4.8); LYMPHOCYTES % (AUTO) 13.4 % (21-51); MEAN CORPUSCULAR HGB CONC 32.7 g/dL (33.0-36.5); MEAN CORPUSCULAR VOLUME 85.4 FL (78-98); MEAN PLATELET VOLUME 6.9 FL (7.4-10.4); MONOCYTES # (AUTO) 1.9 X10'3 (0-0.9); MONOCYTES % (AUTO) 14.1 % (2-12); NEUTROPHILS # (AUTO) 8.7 X10'3 (1.8-7.7); NEUTROPHILS % (AUTO) 64.8 % (42-75); PLATELET COUNT 292 X10'3 (140-440); RED BLOOD COUNT 4.41 X10'6 (4.70-6.10); RED CELL DISTRIBUTION WIDTH 14.6 % (11.5-14.5); WHITE BLOOD COUNT 13.5 X10'3 (4.5-11.0)
[2023-10-01] MEDS: CefTRIAXone/D5W-Rocephin 1gm 50 ML IV SCH (07:53)
[2023-10-01] MEDS ORDERED: azithromycin/NS 500mg/250ml 250 ML IV SCH (08:00)
[2023-10-01] MEDS ORDERED: docusate sod 100mg capsule PO SCH (08:00)
[2023-10-01 08:07] LABS: ALANINE AMINOTRANSFERASE 36 U/L (12-78); ALBUMIN 3.3 G/DL (3.4-5.0); ALKALINE PHOSPHATASE 107 IU/L (46-116); ANION GAP 8 (8-16); ASPARTATE AMINO TRANSFERASE 17 U/L (10-37); BILIRUBIN,TOTAL 0.3 MG/DL (0.1-1.0); BLOOD UREA NITROGEN 19 MG/DL (7-18); BUN/CREATININE RATIO 15.4 (10.0-20.0); CALCIUM 8.7 MG/DL (8.5-10.1); CHLORIDE 91 MMOL/L (99-107); CHOL/HDL RATIO 2.3 (0.00-4.99); CHOLESTEROL 165 MG/DL (0-200); CREATININE 1.23 MG/DL (0.60-1.10); GLUCOSE 98 MG/DL (70-104); HDL CHOLESTEROL 73 MG/DL (35-60); LDL CHOLESTEROL 71 MG/DL (50-100); POTASSIUM 4.2 MMOL/L (3.5-5.1); SODIUM 126 MMOL/L (135-145); TOTAL CARBON DIOXIDE 27.3 MMOL/L (24-32); TOTAL PROTEIN 6.7 G/DL (6.4-8.2); TRIGLYCERIDES 73 MG/DL (20-135); eCRCL 52 ML/MIN; eGFR 57 ML/MIN
[2023-10-01] MEDS: normal saline 1000ml 1,000 ML IV SCH ×2 (12:59→20:52)
[2023-10-01] MEDS ORDERED: iohexol 350MG/ML 100ml bottle IV ONE (14:02)
[2023-10-01] MEDS: furosemide 20 MG/2 ML vial IV SCH (17:45)
[2023-10-01] MEDS: atorvastatin 10mg tablet PO SCH (20:51)
[2023-10-02] VITALS (7 sets, daily range): BP systolic 110–170; BP diastolic 65–80; PULSE 96–103; RESP 16–18; TEMP 97.2–98.5; O2SAT 93–97
[2023-10-02] MEDS: HYDROcodone/acetaminophen 10/325mg tab PO PRN (00:21)
[2023-10-02] MEDS ORDERED: hydrALAZINE 20mg/ml inj. IV PRN (00:40)
[2023-10-02 06:57] LABS: BASOPHILS # (AUTO) 0.1 X10'3 (0-0.2); BASOPHILS % (AUTO) 0.7 % (0-1); EOSINOPHILS # (AUTO) 0.9 X10'3 (0-0.9); EOSINOPHILS % (AUTO) 7.8 % (0-6); HEMATOCRIT 38.5 % (42.0-52.0); HEMOGLOBIN 12.8 g/dl (14.0-17.9); LYMPHOCYTES # (AUTO) 1.4 X10'3 (1.1-4.8); LYMPHOCYTES % (AUTO) 12.3 % (21-51); MEAN CORPUSCULAR HEMOGLOBIN 28.4 PG (27.0-31.0); MEAN CORPUSCULAR HGB CONC 33.3 g/dL (33.0-36.5); MEAN CORPUSCULAR VOLUME 85.1 FL (78-98); MEAN PLATELET VOLUME 6.7 FL (7.4-10.4); MONOCYTES # (AUTO) 1.3 X10'3 (0-0.9); MONOCYTES % (AUTO) 11.5 % (2-12); NEUTROPHILS # (AUTO) 7.7 X10'3 (1.8-7.7); NEUTROPHILS % (AUTO) 67.7 % (42-75); PLATELET COUNT 263 X10'3 (140-440); RED BLOOD COUNT 4.52 X10'6 (4.70-6.10); RED CELL DISTRIBUTION WIDTH 14.6 % (11.5-14.5); WHITE BLOOD COUNT 11.4 X10'3 (4.5-11.0)
[2023-10-02 07:01] LABS: D-DIMER 3.12 MG/L FEU (0-0.50)
[2023-10-02 07:16] LABS: ALANINE AMINOTRANSFERASE 33 U/L (12-78); ALBUMIN 3.3 G/DL (3.4-5.0); ALBUMIN/GLOBULIN RATIO 0.9 (1.1-1.5); ALKALINE PHOSPHATASE 112 IU/L (46-116); ANION GAP 9 (8-16); ASPARTATE AMINO TRANSFERASE 21 U/L (10-37); BILIRUBIN,TOTAL 0.3 MG/DL (0.1-1.0); BLOOD UREA NITROGEN 14 MG/DL (7-18); BUN/CREATININE RATIO 14.3 (10.0-20.0); CALCIUM 9.1 MG/DL (8.5-10.1); CHLORIDE 92 MMOL/L (99-107); CREATININE 0.98 MG/DL (0.60-1.10); GLUCOSE 89 MG/DL (70-104); POTASSIUM 3.7 MMOL/L (3.5-5.1); SODIUM 129 MMOL/L (135-145); TOTAL CARBON DIOXIDE 28.4 MMOL/L (24-32); TOTAL PROTEIN 6.8 G/DL (6.4-8.2); eCRCL 65 ML/MIN; eGFR 74 ML/MIN
[2023-10-02] MEDS: levoTHYROXINE 25mcg tablet PO SCH (07:56)
[2023-10-02] MEDS: furosemide 20 MG/2 ML vial IV SCH (07:56)
[2023-10-02] MEDS: CefTRIAXone/D5W-Rocephin 1gm 50 ML IV SCH (07:57)
[2023-10-02] MEDS: potassium chloride 8mEq ER tablet PO SCH (07:57)
[2023-10-02] MEDS: tamsulosin 0.4mg capsule PO SCH (07:57)
[2023-10-02] MEDS: lisinopril 10 MG tablet PO SCH (07:58)
[2023-10-02] MEDS: amLODIPine 5mg tablet PO SCH (08:00)
[2023-10-02] MEDS: normal saline 1000ml 1,000 ML IV SCH ×2 (18:32→19:30)
--- NOTE | 2023-10-02 18:45 | NUR ---
Pt found on floor head against the recliner, recliner against the window.
[2023-10-02] MEDS: atorvastatin 10mg tablet PO SCH (21:44)
[2023-10-03] VITALS (9 sets, daily range): BP systolic 132–163; BP diastolic 60–69; PULSE 94–103; RESP 16–22; TEMP 97.8–98.3; O2SAT 92–98
--- NOTE | 2023-10-03 06:30 | NUR ---
Report to Beverly Ruano.
--- NOTE | 2023-10-03 06:30 | NUR ---
Patient in room ORTHO 4020. I have received report from Milena SAMPSON and had the opportunity to ask questions and assume patient care.
[2023-10-03] MEDS: CefTRIAXone/D5W-Rocephin 1gm 50 ML IV SCH (08:46)
[2023-10-03] MEDS: furosemide 20 MG/2 ML vial IV SCH (08:46)
[2023-10-03] MEDS: tamsulosin 0.4mg capsule PO SCH (09:09)
[2023-10-03] MEDS: potassium chloride 8mEq ER tablet PO SCH (09:09)
[2023-10-03] MEDS: levoTHYROXINE 25mcg tablet PO SCH (09:10)
[2023-10-03] MEDS: lisinopril 10 MG tablet PO SCH (09:10)
[2023-10-03] MEDS: amLODIPine 5mg tablet PO SCH (09:10)
[2023-10-03] MEDS ORDERED: albuterol 2.5 MG/3 ML nebule NEB PRN (09:15)
[2023-10-03 09:24] LABS: BASOPHILS # (AUTO) 0.1 X10'3 (0-0.2); BASOPHILS % (AUTO) 0.7 % (0-1); EOSINOPHILS # (AUTO) 0.6 X10'3 (0-0.9); EOSINOPHILS % (AUTO) 4.8 % (0-6); HEMATOCRIT 36.3 % (42.0-52.0); LYMPHOCYTES # (AUTO) 1.5 X10'3 (1.1-4.8); LYMPHOCYTES % (AUTO) 11.5 % (21-51); MEAN CORPUSCULAR HEMOGLOBIN 28.1 PG (27.0-31.0); MEAN CORPUSCULAR HGB CONC 33.1 g/dL (33.0-36.5); MONOCYTES # (AUTO) 1.7 X10'3 (0-0.9); MONOCYTES % (AUTO) 13.2 % (2-12); NEUTROPHILS # (AUTO) 8.9 X10'3 (1.8-7.7); NEUTROPHILS % (AUTO) 69.8 % (42-75); PLATELET COUNT 241 X10'3 (140-440); RED BLOOD COUNT 4.27 X10'6 (4.70-6.10); RED CELL DISTRIBUTION WIDTH 14.5 % (11.5-14.5); WHITE BLOOD COUNT 12.7 X10'3 (4.5-11.0)
[2023-10-03 09:57] LABS: ALANINE AMINOTRANSFERASE 28 U/L (12-78); ALBUMIN/GLOBULIN RATIO 0.9 (1.1-1.5); ALKALINE PHOSPHATASE 101 IU/L (46-116); ANION GAP 9 (8-16); ASPARTATE AMINO TRANSFERASE 20 U/L (10-37); BILIRUBIN,TOTAL 0.4 MG/DL (0.1-1.0); BLOOD UREA NITROGEN 17 MG/DL (7-18); BUN/CREATININE RATIO 19.3 (10.0-20.0); CALCIUM 8.6 MG/DL (8.5-10.1); CHLORIDE 93 MMOL/L (99-107); CREATININE 0.88 MG/DL (0.60-1.10); GLUCOSE 86 MG/DL (70-104); SODIUM 128 MMOL/L (135-145); TOTAL CARBON DIOXIDE 26.4 MMOL/L (24-32); TOTAL PROTEIN 6.3 G/DL (6.4-8.2); eCRCL 73 ML/MIN; eGFR 84 ML/MIN
--- NOTE | 2023-10-03 13:23 | NUR ---
Spoke with patient dtr and she was able to tell me the back story on her father. Patient was seen in [facility] hospital back in April2023. Since the last hospital stay when he was seen for low NA, patient has never been the same. Patient has been having little seizures ever since. This is not normal for the patient. Patient hasn't been able to see a neurologist outpatient due to the 4month wait. Patient did see Dr. Pleitez for his kidneys but wasn't able to afford the $30,000.00 a month drug he was prescribing. Patient does live at [facility] permanently as a resident.
[2023-10-03] MEDS: atorvastatin 10mg tablet PO SCH (20:12)
--- NOTE | 2023-10-03 23:00 | NUR ---
I have reviewed documentation by Bright CROOK and agree with documentation except where I documented my own findings. Also have reviewed the iv medications on the EMAR.
--- NOTE | 2023-10-04 01:59 | NUR ---
pt is furiously scrubbing hands with a wipe stating "filthy, dirty! why won't you stop?" he states that he wants to throw everything on his bedside table away. items removed from bedside. patient had received an incentive spirometer at the start of shift and received education on its use; it was found on bedside table filled with urine and was disposed of. bedding changed, nelda care provided
[2023-10-04 06:00] VITALS: BP 151/72; PULSE 98; RESP 15; TEMP 98.2; O2SAT 94
--- NOTE | 2023-10-04 06:20 | NUR ---
Patient in room ORTHO 4020. I have received report from Bright CROOK and had the opportunity to ask questions and assume patient care.
--- NOTE | 2023-10-04 06:32 | NUR ---
report to Beverly CROOK
[2023-10-04 06:33] LABS: BASOPHILS # (AUTO) 0.1 X10'3 (0-0.2); BASOPHILS % (AUTO) 0.6 % (0-1); EOSINOPHILS # (AUTO) 0.6 X10'3 (0-0.9); EOSINOPHILS % (AUTO) 4.9 % (0-6); HEMATOCRIT 34.5 % (42.0-52.0); HEMOGLOBIN 11.7 g/dl (14.0-17.9); LYMPHOCYTES # (AUTO) 1.7 X10'3 (1.1-4.8); LYMPHOCYTES % (AUTO) 13.4 % (21-51); MEAN CORPUSCULAR HEMOGLOBIN 28.6 PG (27.0-31.0); MEAN PLATELET VOLUME 6.8 FL (7.4-10.4); MONOCYTES # (AUTO) 1.6 X10'3 (0-0.9); MONOCYTES % (AUTO) 13.1 % (2-12); NEUTROPHILS # (AUTO) 8.6 X10'3 (1.8-7.7); PLATELET COUNT 245 X10'3 (140-440); RED CELL DISTRIBUTION WIDTH 14.4 % (11.5-14.5); WHITE BLOOD COUNT 12.6 X10'3 (4.5-11.0)
[2023-10-04 06:46] LABS: ALANINE AMINOTRANSFERASE 29 U/L (12-78); ALBUMIN/GLOBULIN RATIO 0.9 (1.1-1.5); ALKALINE PHOSPHATASE 99 IU/L (46-116); ANION GAP 6 (8-16); ASPARTATE AMINO TRANSFERASE 25 U/L (10-37); BILIRUBIN,TOTAL 0.4 MG/DL (0.1-1.0); BLOOD UREA NITROGEN 14 MG/DL (7-18); BUN/CREATININE RATIO 14.9 (10.0-20.0); CHLORIDE 92 MMOL/L (99-107); CREATININE 0.94 MG/DL (0.60-1.10); GLUCOSE 100 MG/DL (70-104); POTASSIUM 4.3 MMOL/L (3.5-5.1); SODIUM 123 MMOL/L (135-145); TOTAL CARBON DIOXIDE 24.8 MMOL/L (24-32); TOTAL PROTEIN 6.4 G/DL (6.4-8.2); eCRCL 68 ML/MIN; eGFR 78 ML/MIN
[2023-10-04 07:30] VITALS: RESP 24; O2SAT 98
[2023-10-04 08:00] VITALS: RESP 15; O2SAT 98
[2023-10-04] MEDS ORDERED: furosemide 20MG tablet PO SCH (08:00)
[2023-10-04] MEDS: CefTRIAXone/D5W-Rocephin 1gm 50 ML IV SCH (08:34)
[2023-10-04] MEDS ORDERED: amLODIPine 5mg tablet PO SCH (08:45)
[2023-10-04 09:07] VITALS: PULSE 104; RESP 16; O2SAT 96
[2023-10-04 09:14] VITALS: PULSE 96; RESP 16
[2023-10-04] MEDS: lisinopril 10 MG tablet PO SCH (09:49)
[2023-10-04] MEDS: potassium chloride 8mEq ER tablet PO SCH (09:49)
[2023-10-04] MEDS: tamsulosin 0.4mg capsule PO SCH (09:49)
[2023-10-04] MEDS: levoTHYROXINE 25mcg tablet PO SCH (09:53)
[2023-10-04 10:00] VITALS: BP 111/57; PULSE 98; RESP 17; TEMP 98.1; O2SAT 100
[2023-10-04] MEDS ORDERED: sodium chloride 1gm tablet PO SCH (13:00)
--- NOTE | 2023-10-04 17:52 | NUR ---
Patient discharged back to [facility]. [employer] picked patient up. Patient belongings were gathered, IV removed with canula intact. Patient appropriate for discharge. Patient left the unit with [employer] personnel in wheel chair.
== END 2023-10-04 16:21 | DRG 683 ==
LOC: ER 15:08 → ED HOLD 23:57 → ORTHO 4S 10-01 07:09
PROVIDERS: ADMIT Family Medicine; ATTEND Internal Medicine
PROC: B32T1ZZ Computerized Tomography (CT Scan) of Left Pulmonary Artery using Low Osmolar Contrast (ICD-10-PCS; principal; 2023-10-01)
PROC: B3201ZZ Computerized Tomography (CT Scan) of Thoracic Aorta using Low Osmolar Contrast (ICD-10-PCS; 2023-10-01)
PROC: B32S1ZZ Computerized Tomography (CT Scan) of Right Pulmonary Artery using Low Osmolar Contrast (ICD-10-PCS; 2023-10-01)
DX: N17.9 Acute kidney failure, unspecified (principal); E87.1 Hypo-osmolality and hyponatremia; I50.32 Chronic diastolic (congestive) heart failure; I13.0 Hypertensive heart and chronic kidney disease with heart failure and stage 1 through stage 4 chronic kidney disease, or unspecified chronic kidney disease; E78.00 Pure hypercholesterolemia, unspecified; E03.9 Hypothyroidism, unspecified; K21.9 Gastro-esophageal reflux disease without esophagitis; N40.0 Benign prostatic hyperplasia without lower urinary tract symptoms; F41.9 Anxiety disorder, unspecified; F32.A Depression, unspecified; D72.829 Elevated white blood cell count, unspecified; S00.83XA Contusion of other part of head, initial encounter; R26.9 Unspecified abnormalities of gait and mobility; G89.29 Other chronic pain; M85.88 Other specified disorders of bone density and structure, other site; N18.30 Chronic kidney disease, stage 3 unspecified; E87.8 Other disorders of electrolyte and fluid balance, not elsewhere classified; D64.9 Anemia, unspecified; M19.90 Unspecified osteoarthritis, unspecified site; M25.551 Pain in right hip; M48.02 Spinal stenosis, cervical region; J44.9 Chronic obstructive pulmonary disease, unspecified; W01.0XXA Fall on same level from slipping, tripping and stumbling without subsequent striking against object, initial encounter; Y93.01 Activity, walking, marching and hiking; Y92.89 Other specified places as the place of occurrence of the external cause; Y99.8 Other external cause status; Z86.73 Personal history of transient ischemic attack (TIA), and cerebral infarction without residual deficits; Z82.49 Family history of ischemic heart disease and other diseases of the circulatory system; Z79.899 Other long term (current) drug therapy; R53.1 Weakness
CPT/HCPCS: 36415; 70450; 71045; 71275; 72125; 72170; 73502; 80053; 80061; 81003; 83036; 83605; 83735; 83880; 84100; 84145; 84443; 84484; 85007; 85025; 85379; 85610; 85730; 87040; 94640; 94760; 96374; 97110; 97161; 97530; 99285; G0378; J0456; J0696; J1940; J2270; J3490; J7030; Q9967

== ENCOUNTER 2024-09-30 00:41 | Emergency (ER) | payer MEDICARE, MEDICAID ==
[~2024-09-30] VITALS: Ht 177.8 cm; Wt 95.2 kg
[~2024-09-30 00:41] MED LIST changes: -ALBU8HFA PO; +AMIT100T76 PO; -AMIT75TA7 PO; +AMLO5TAB16 PO; -CHOL100025 PO; +FURO40TA4 PO; -LACT1CAP65 PO; +LISI10TA27 PO; -LISI5TAB22 PO; -MOME13HF8 PO; -MULT-1074 PO; -OMEP20CA15 PO; +POTA8TAB69 PO; -SIMV-342 PO; +SIMV-42 PO
[2024-09-30 02:19] VITALS: BP 151/94; PULSE 95; RESP 14; TEMP 97.8; O2SAT 97
== END 2024-09-30 02:23 | disposition home or self-care (01) ==
LOC: ER 00:42
DX: Z47.89 Encounter for other orthopedic aftercare (principal); I10 Essential (primary) hypertension; E78.00 Pure hypercholesterolemia, unspecified; E03.9 Hypothyroidism, unspecified; J45.909 Unspecified asthma, uncomplicated; K21.9 Gastro-esophageal reflux disease without esophagitis; Z88.8 Allergy status to other drugs, medicaments and biological substances
CPT/HCPCS: 29125; 99283; A6449

== ENCOUNTER 2025-04-26 06:34 | Day surgery (SDC) | payer MEDICARE, MEDICAID ==
[~2025-04-26] VITALS: Ht 175.3 cm; Wt 80.6 kg
[2025-04-26] VITALS (14 sets, daily range): BP systolic 103–142; BP diastolic 63–86; PULSE 72–93; RESP 11–16; TEMP 97.4; O2SAT 89–100
[2025-04-26] MEDS: ringers solution, lactated 500 ML IV SCH (05:30)
[2025-04-26] MEDS: ceFAZolin 2gm/dext,iso 50mL 50 ML IV ONE (05:30)
[~2025-04-26 06:34] MED LIST changes: +ACET-1008 PO; -AMIT100T76 PO; +AMLO10TA13 PO; -AMLO5TAB16 PO; +ASPI-1265 PO; +BISA10SU11 RC; +CHOL100046 PO; +DEMECLOCYCLINE PO; +DIPH-423 PO; +DOCU-148 PO; +FAMO20TA8 PO; -FLO0.4C PO; -FURO40TA4 PO; +HYDR-3686 PO; +HYDR-3965 PO; +IPRA3AMP31 INH; -LISI10TA27 PO; +LORA-268 PO; +MAGN400O6 PO; +MULT-1085 PO; +NA P230E RC; +POLY119P3 PO; -POTA8TAB69 PO; +PRED10TA23 PO; +SENN-360 PO; +TAMS-55 PO; +VITC500T PO
[2025-04-26] MEDS: famotidine 20mg tablet PO ONE (07:22)
[2025-04-26 07:40] LABS: BASOPHILS # (AUTO) 0.1 X10'3 (0-0.2); BASOPHILS % (AUTO) 0.8 % (0-1); EOSINOPHILS # (AUTO) 0.7 X10'3 (0-0.9); EOSINOPHILS % (AUTO) 5.1 % (0-6); LYMPHOCYTES # (AUTO) 2.5 X10'3 (1.1-4.8); LYMPHOCYTES % (AUTO) 18.9 % (21-51); MEAN CORPUSCULAR HEMOGLOBIN 26.4 PG (27.0-31.0); MEAN CORPUSCULAR HGB CONC 31.9 g/dL (33.0-36.5); MEAN CORPUSCULAR VOLUME 82.8 FL (78-98); MEAN PLATELET VOLUME 6.9 FL (7.4-10.4); MONOCYTES # (AUTO) 1.4 X10'3 (0-0.9); MONOCYTES % (AUTO) 10.6 % (2-12); NEUTROPHILS # (AUTO) 8.4 X10'3 (1.8-7.7); NEUTROPHILS % (AUTO) 64.6 % (42-75); PRE OP HEMATOCRIT 37.1 % (42.0-52.0); PRE OP HEMOGLOBIN 11.8 g/dL (14.0-17.9); PRE OP PLATELET COUNT 434 X10'3 (140-440); RED BLOOD COUNT 4.48 X10'6 (4.70-6.10); RED CELL DISTRIBUTION WIDTH 19.5 % (11.5-14.5)
[2025-04-26 07:56] LABS: ALBUMIN 3.1 G/DL (3.4-5.0); ALBUMIN/GLOBULIN RATIO 0.8 (1.1-1.5); ALKALINE PHOSPHATASE 94 IU/L (46-116); BLOOD UREA NITROGEN 14 MG/DL (7-18); BUN/CREATININE RATIO 16.5 (10.0-20.0); CHLORIDE 95 MMOL/L (99-107); CREATININE 0.85 MG/DL (0.60-1.10); PRE OP ALT 26 U/L (30-65); PRE OP ANION GAP 7 (8-16); PRE OP AST 19 U/L (10-37); PRE OP BILIRUB, TOTAL 0.3 MG/DL (0.0-1.0); PRE OP GLUCOSE 78 MG/DL (70-104); PRE OP POTASSIUM 3.8 MMOL/L (3.4-5.1); PRE OP SODIUM 132 MMOL/L (135-145); TOTAL CARBON DIOXIDE 30.5 MMOL/L (24-32); TOTAL PROTEIN 6.8 G/DL (6.4-8.2); eCRCL 75 ML/MIN; eGFR 87 ML/MIN
[2025-04-26] MEDS ORDERED: BUPIVAcaine 2.5mg/ml inj 50ml vial (contains preservative) ONE (09:05)
[2025-04-26 09:07] LABS: ANISOCYTOSIS 2+; ELLIPTOCYTES FEW; PLATELET ESTIMATE NORMAL
[2025-04-26 09:08] LABS: BURR CELLS FEW
[2025-04-26] MEDS ORDERED: cloNIDine hcl/PF 100mcg/ml inj ONE (09:12)
[2025-04-26] MEDS ORDERED: fentaNYL/PF 50MCG/1 ML 2ML syringe ONE (09:18)
[2025-04-26] MEDS ORDERED: midazolam 1 mg/ML 2ml injection ONE (09:18)
[2025-04-26] MEDS ORDERED: ondansetron/PF 4mg/2ml inj IV PRN (09:55)
[2025-04-26] MEDS ORDERED: proCHLORperazine 10 MG/2 ml inj IV PRN (09:55)
[2025-04-26] MEDS ORDERED: ringers solution, lacted 1,000 ML IV SCH (09:55)
[2025-04-26] MEDS ORDERED: acetaminophen 1,000mg/100ml IV 100 ML IV PRN (09:55)
[2025-04-26] MEDS ORDERED: morphine 2 MG/ML inj. syringe IV PRN (09:55)
[2025-04-26] MEDS ORDERED: hydrALAZINE 20mg/ml inj. IV PRN (09:55)
[2025-04-26] MEDS ORDERED: labetalol 20mg/4ml (5mg/ml) syringe IV PRN (09:55)
[2025-04-26] MEDS ORDERED: meperidine/PF 25mg/ml syringe IV PRN (09:55)
[2025-04-26] MEDS ORDERED: morphine 4 MG/ML inj SYRINge IV PRN (09:55)
[2025-04-26] MEDS ORDERED: HYDROmorphone/PF 0.2 MG/ML SYRINGE IV PRN ×2 (09:55)
[2025-04-26] MEDS ORDERED: LIDOcaine 1%/PF 5ML 10 MG/ML VIAL ONE (10:02)
[2025-04-26] MEDS ORDERED: ePHEDrine 50MG/ML INJ. ONE (10:02)
[2025-04-26] MEDS ORDERED: 0.9 % SODIUM CHLORIDE 10 ML VIAL ONE (10:02)
[2025-04-26] MEDS ORDERED: propofol inj 20 ML IV ONE ×4 (10:02)
[2025-04-26] MEDS ORDERED: dexamethasone sod phosphate 4mg/ml inj. ONE (10:03)
[2025-04-26] MEDS ORDERED: LIDOcaine 2% (20mg/ml) 5ml vial ONE (10:03)
[2025-04-26] MEDS ORDERED: ROPIVAcaine 0.5% (5mg/ml) 30ml vial ONE (10:04)
--- NOTE | 2025-04-26 11:46 | OPERATIVE REPORT ---
Operative Report Providers to ~ Date of Procedure: Apr 26, 2025 Pre-Operative Diagnosis: Chronic osteomyelitis right distal forearm Post-Operative Diagnosis SAME as PRE-Op Procedure Performed Excision of distal ulna right forearm Surgeon: Hector Quintanilla MD Boom Supervisor None Anesthesiologist: Josefina Smith Type of Anesthesia: General, Regional Findings: Open wound communicating with the head of the ulna. Some thickened abnormal appearing tissue arising from the wrist joint. Complications None Prosthetics\Implants used: None Estimated Blood Loss: None Specimen Removed: Deep wound culture Description of Procedure: The patient is a 79-year-old man who suffered a distal radius fracture in the past. This went untreated for a number of months and one surgery was attempted there was found to be exuberant purulent material at the distal radius site. This was then treated with percutaneous pinning after I&D. The patient was noncompliant and the pins eventually we were removed. The wrist settled in a radial position causing prominence of the ulnar head. The patient then Gip rubbing the area on hard surface and developed an erosion with exposed distal ulna head. Surgery indicated to effect wound closure. Consent was obtained from the patient's daughter has power of district attorney. The patient was brought to the operating room where the anesthetic was given. The arm was prepped and draped in usual manner with the tourniquet up high. An elliptical incision was made longitudinally over the distal ulna. There was a 3 mm open communicating sinus down to the head of the ulna. Incision was made longitudinally and this section of bad skin was excised. Deeper dissection identified some thickened ill-appearing tissue so deep wound culture was done at the wrist joint. The thorough irrigation was done followed by use of the sagittal saw to create a diagonal cut to remove the prominent distal ulna. Further irrigation was done with the antibiotic solution. The incision was then closed with Vicryl in the Prolene suture. A sterile dressing was then applied after local infiltration of Marcaine. The splint was applied over the top as well. The tourniquet was released the hand perfused well and the patient was taken to the recovery room in stable condition. HECTOR QUINTANILLA Jr., MD Apr 26, 2025 11:46
== END 2025-04-26 12:52 ==
LOC: PAS 06:34
PROVIDERS: ATTEND Orthopaedic Surgery Hand Surgery
DX: M86.631 Other chronic osteomyelitis, right radius and ulna (principal); J44.9 Chronic obstructive pulmonary disease, unspecified; F41.9 Anxiety disorder, unspecified; F32.A Depression, unspecified; K21.9 Gastro-esophageal reflux disease without esophagitis; I50.9 Heart failure, unspecified; E03.9 Hypothyroidism, unspecified; N18.9 Chronic kidney disease, unspecified; E78.5 Hyperlipidemia, unspecified; M19.90 Unspecified osteoarthritis, unspecified site; I13.0 Hypertensive heart and chronic kidney disease with heart failure and stage 1 through stage 4 chronic kidney disease, or unspecified chronic kidney disease; Z79.899 Other long term (current) drug therapy; Z98.890 Other specified postprocedural states; G89.18 Other acute postprocedural pain
CPT/HCPCS: 25240; 36415; 64417; 80053; 82948; 85025; 87070; 87075; A4565; A4618; A6222; A6402; A6446; A6449; A7000; J0735; J1100; J2003; J2250; J2704; J2795; J3010; J3490; J7030; J7120; Z7506; Z7508; Z7512; Z7610; 85008